=== PATIENT | female | born 1980 | race Caucasian/White ===

== ENCOUNTER → 2017-09-12 | Day surgery (SDC) | payer OTHER, SELFPAY ==
[2017-09-08 13:39] LABS: BASOPHILS # (AUTO) 0.1 (0.0-0.1); BASOPHILS % 0.6 % (0.0-1.0); EOSINOPHILS # (AUTO) 0.1 (0.0-0.4); EOSINOPHILS % 1.4 % (0.0-6.0); HEMATOCRIT 33.1 % (34.2-44.1); HEMOGLOBIN 10.3 g/dL (12.0-16.0); LYMPHOCYTES # (AUTO) 3.4 (1.0-3.2); LYMPHOCYTES % 39.7 % (18.0-39.1); MEAN CORPUSCULAR HEMOGLOBIN 23.4 pg (28-32); MEAN CORPUSCULAR HGB CONC 31.1 g/dL (31-35); MEAN CORPUSCULAR VOLUME 75.2 fL (81-99); MONOCYTES # (AUTO) 0.6 (0.2-0.8); MONOCYTES % 6.5 % (4.4-11.3); NEUTROPHILS # (AUTO) 4.4 (2.1-6.9); NEUTROPHILS % 51.7 % (38.7-80.0); PLATELET COUNT 568 x10e3/uL (140-360); RED CELL DISTRIBUTION WIDTH 15.5 % (11.7-14.4)
[2017-09-08 14:06] LABS: ALANINE AMINOTRANSFERASE 28 IU/L (0-55); ALBUMIN 3.8 g/dL (3.5-5.0); ALKALINE PHOSPHATASE 63 IU/L (40-150); ANION GAP 11.9 mmol/L (8-16); BLOOD UREA NITROGEN 10 mg/dL (7-26); BUN/CREATININE RATIO 13 (6-25); CALCIUM 9.2 mg/dL (8.4-10.2); CARBON DIOXIDE 23 mmol/L (22-29); CHLORIDE 108 mmol/L (98-107); CREATININE, SERUM 0.79 mg/dL (0.57-1.11); EST GLOMERULAR FILTRATION RATE > 60 ML/MIN (60-); GLUCOSE 101 mg/dL (74-118); POTASSIUM 3.9 mmol/L (3.5-5.1); SODIUM 139 mmol/L (136-145)
[~2017-09-12] MED LIST: BACITRACIN 50,000 UNIT VIAL ONE; CEFAZOLIN SOD 1 GM VIAL ONE; DESFLURANE 240 ML BTL INH ONE; DEXAMETHASONE SOD PHOS INJ 4 MG/ML VIAL ONE; ELIQUIS; FENTANYL CITRATE/PF 100MCG/2 ML INJ ONE; GLYCOPYRROLATE INJ 1MG/ 5 ML SYR ONE; LIDOCAINE HCL 2% LOCAL INJ 5 ML SDV VIAL INJ ONE; MIDAZOLAM HCL 2 MG/2 ML VIAL ONE; NEOSTIGMINE 5 MG/5ML SYR ONE; ONDANSETRON HCL INJ 2 MG/ML VIAL ONE; PROPOFOL IV EMULSION 10 MG/ML 20 ML VIAL ONE; ROCURONIUM BROMIDE 10 MG/ML 5ML VIAL ONE; SCOPOLAMINE 1.5 MG PATCH ONE; [UNRECOGNIZED DRUG - CODE] PO
--- OUTSIDE RECORDS SUMMARY | 2017-09-12 06:26 | XMS REPORT | Clinical Summary ---
Author Author [employer] Organization [employer] Address Unknown Phone Unavailable Care Team Providers Care Flow Floor Attendant Name Role Phone Natacha Gutierrez MD PCP Allergies Active Allergy Reactions Severity Noted Date Comments Cefuroxime Axetil GI Intolerance 07/01/2016 Erythromycin GI Intolerance 07/01/2016 Current Medications Prescription Sig. Disp. Refills Start End Date Status Date sertraline (ZOLOFT) 50 MG Take 50 mg by mouth Active tablet daily. ergocalciferol (VITAMIN TAKE 1 CAPSULE BY MOUTH 1 12 capsule 3 Active D2) 50,000 unit capsule TIME A WEEK 18 cetirizine (ZyrTEC) 10 MG Take 10 mg by mouth once 0 04/04/20 Discontin tablet daily. 16 17 ued CRANBERRY FRUIT EXTRACT 01/25/20 Discontin (CRANBERRY EXTRACT, BULK, 17 ued MISC) ergocalciferol (VITAMIN Take 1 capsule (50,000 4 capsule 11 07/13/19 07/28/19 Discontin D2) 50,000 unit capsule Units total) by mouth 17 18 ued once a week. cyanocobalamin 1,000 Inject 1 mL (1,000 mcg 10 mL 1 08/06/19 Discontin mcg/mL injection total) into the shoulder, 17 17 ued thigh, or buttocks once a week. X 1 month, then once monthly thereafter insulin Use weekly with b12 50 Syringe 1 08/06/19 01/25/20 Discontin syringe,safetyneedle 1 mL injections 17 17 ued 30 gauge x 5/16" syringe penicillin v potassium Take 1 tablet (500 mg 21 tablet 0 10/15/19 (VEETID) 500 MG tablet total) by mouth 3 (three) 17 17 times a day for 7 days. benzocaine (HURRICAINE) Apply 1 application to 1 each 0 10/15/19 20 % gel the mouth or throat 4 17 17 (four) times a day as needed for mucositis for up to 7 days. traMADol (ULTRAM) 50 mg Take 1 tablet (50 mg 24 tablet 0 11/28/19 tablet total) by mouth every 6 17 17 (six) hours as needed for moderate pain for up to 6 days. clindamycin (CLEOCIN HCL) Take 1 capsule (300 mg 30 capsule 0 12/08/19 300 MG capsule total) by mouth 3 (three) 17 17 times a day for 10 days. amoxicillin (AMOXIL) 400 Take 6.3 mL (500 mg 126 mL 0 01/29/2002/07 mg/5 mL suspension total) by mouth 2 (two) 17 17 times a day for 10 days. HYDROcodone-acetaminophen Take 15 mL by mouth every 01/29/20 02/08/20 (HYCET) 2.5-108.3 mg/5 mL 4 (four) hours as needed 17 17 solution for moderate pain for up to 10 days. Max Daily Amount: 90 mL nystatin (MYCOSTATIN) Apply topically 3 (three) 200 g 0 02/04/20 100,000 unit/gram powder times a day for 10 days. 17 17 Suspend in solution for 100,000 units/mL, 5 mL swish and swallow TID amoxicillin-pot Take 1 tablet by mouth 2 14 tablet 0 04/10/20 clavulanate (AUGMENTIN) (two) times a day for 7 17 17 875-125 mg per tablet days. cetirizine (ZyrTEC) 10 MG Take 1 tablet (10 mg 30 tablet 9 04/10/20 05/10/20 tablet total) by mouth daily for 17 17 30 days. fluconazole (DIFLUCAN) Take 1 tablet (150 mg 1 tablet 0 04/10/20 150 MG tablet total) by mouth once for 17 17 1 dose. ergocalciferol (VITAMIN TAKE 1 CAPSULE BY MOUTH 1 4 capsule 0 08/26/19 Discontin D2) 50,000 unit capsule TIME A WEEK 18 18 [facility] Hospital, Clinic, or Ordered Dose Route Frequency Start End Date Status Other Facility Date Administered Medication methylPREDNISolone 80 mg IM once 04/10/20 04/10/20 Ended acetate (DEPO-MEDROL) 17 17 injection 80 mgIndications: Acute recurrent maxillary sinusitis dexamethasone (DECADRON) 4 mg IM once 04/10/20 04/10/20 Ended injection 4 17 17 mgIndications: Acute recurrent maxillary sinusitis Active Problems Problem Noted Date Chronic tonsillitis 12/26/2016 Overview: Added automatically from request for surgery [id number] Iron deficiency anemia due to chronic blood loss 08/05/2016 Vitamin D deficiency 08/05/2016 Vitamin B12 deficiency 08/05/2016 Essential hypertension 08/05/2016 History of bariatric surgery 08/05/2016 Encounters Date Type Specialty Care Team Description 08/25/2017 Refill Internal Medicine Lyn Olsen MD 07/27/2017 Refill Internal Medicine Lyn Olsen MD 04/10/2017 Office Visit Internal Medicine Natacha Gutierrez MD Acute recurrent maxillary sinusitis (Primary Dx) 02/19/2017 Office Visit Otolaryngology Marjan Goldstein MD Chronic tonsillitis (Primary Dx) 02/03/2017 Office Visit Otolaryngology Marjan Goldstein MD Oral thrush (Primary Dx) 01/28/2017 [facility] General Surgery Marjan Goldstein MD Preoperative testing; Encounter Chronic tonsillitis 01/28/2017 Anesthesia General Surgery Michela Emery Event 01/28/2017 Procedure Pass General Surgery 01/28/2017 Surgery General Surgery Marjan Goldstein MD TONSILLECTOMY 01/24/2017 Pre-Admit Pre-Admission Testing Marjan Goldstein MD Preoperative testing Testing (Primary Dx) Appointment 12/26/2016 Office Visit Otolaryngology Marjan Goldstein MD Chronic tonsillitis (Primary Dx) 12/26/2016 Prep for Otolaryngology Marjan Goldstein MD Chronic tonsillitis Surgery (Primary Dx) 11/27/2016 Emergency Emergency Medicine All [facility] II, Dental caries (Primary AIRCRAFT STRUCTURE MECHANIC Dx); [facility] dental Scott, MD 10/14/2016 Emergency Emergency Medicine Ty Moore Toothache (Primary Dx) MD Jose after 09/11/2016 Family History Medical History Relation Name Comments Diabetes Father Heart disease Father Diabetes Mother Diabetes Sister Anxiety disorder Neg Hx Relation Name Status Comments Father Alive Mother Alive Sister Alive Social History Tobacco Use Types Packs/Day Years Used Date Never Smoker Smokeless Tobacco: Never Used Alcohol Use Drinks/Week oz/Week Comments Yes socially Sex Assigned at Date Recorded Not on file Last Filed Vital Signs Vital Sign Reading Time Taken Blood Pressure 137/92 04/10/2017 2:13 PM HAND WRAPPER OPERATOR Pulse 97 04/10/2017 2:13 PM HAND WRAPPER OPERATOR Temperature 37.6 C (99.6 F) 04/10/2017 2:13 PM HAND WRAPPER OPERATOR Respiratory Rate 16 01/28/2017 10:58 AM CDT Oxygen Saturation 99% 04/10/2017 2:13 PM HAND WRAPPER OPERATOR Inhaled Oxygen - - Concentration Weight 145 kg (320 lb) 04/10/2017 2:13 PM HAND WRAPPER OPERATOR Height 167.6 cm (5' 6") 04/10/2017 2:13 PM HAND WRAPPER OPERATOR Body Mass Index 51.65 04/10/2017 2:13 PM HAND WRAPPER OPERATOR Plan of Treatment Health Maintenance Due Date Last Done Comments PAP SMEAR 09/17/2003 INFLUENZA VACCINE 12/24/2017 Procedures Procedure Name Priority Date/Time Associated Diagnosis Comments TONSILLECTOMY 01/28/2017 Chronic tonsillitis 9:00 AM CDT NC AN ELECTIVE Routine 01/28/2017 ENDOTRACHEAL AIRWAY 8:37 AM CDT Procedure Note - Michela Emery - 01/28/2017 8:37 AM CDT Airway Date/Time: 01/28/2017 8:21 AM Performed by: SYLVIA OLIVEIRA Authorized by: SYLVIA OLIVEIRA Location: OR Urgency: Elective Anesthesio logist: SYLVIA OLIVEIRA Other Anesthesia Staff: MICHELA EMERY Performed by: other anesthesia staff Preoxygena markie with 100% O2: Yes C-spine Precaution s Maintained Throughout : Yes Mask Ventilatio n: Easy mask Final Airway Type: Endotrache al airway Final Endotrache al Airway: GONZALEZ tube Cuffed: Yes Technique Used: Direct laryngosco py Devices/Me thods Used in Placement: Intubatin g stylet Insertion Site: Oral Blade Type: Guzman Laryngosco pe Blade/Vide olaryngosc ope Blade Size: 2 Cuff at minimum occlusion pressure: Yes Measured from: Lips ETT to Lips (cm): 20 Placement Verified by: CO2 detection, direct visualizat ion and equal breath sounds Laryngosco pic view: Grade I - full view of glottis Rapid Sequence Induction (RSI): No Modified RSI: No Number of Attempts at Approach: 1 NERVE BLOCK Routine 10/14/2016 Results for this 1:16 PM CDT procedure are in the results section. after 09/11/2016 Results * Surgical pathology request (01/28/2017 8:37 AM) Component Value Ref Range Surgical pathology report See link below for PDF Lab Report Specimen Performing Laboratory [facility] DE[facility] [address] [place] [address] * hCG qualitative, urine screen (01/28/2017 7:21 AM) Only the most recent of 2 results within the time period is included. Component Value Ref Range hCG qualitative, urine Negative Negative Comment: The manufacturers stated sensitivity of HcG test for serum is >/=10 mIU/ml and urine is >/=20mIU/ml. Specimen Performing Laboratory Urine [facility] [address] [place] [address] * Partial thromboplastin time, activated (01/24/2017 3:31 PM) Component Value Ref Range PTT 33.5 23.0 - 36.0 sec Comment: PTT therapeutic range for unfractionated heparin is 61.0-112.0 seconds which corresponds to Anti-Xa 0.3-0.7 U/ml. Specimen Performing Laboratory Blood [facility] [address] [place] [address] * Prothrombin time with INR (01/24/2017 3:31 PM) Component Value Ref Range Prothrombin time 12.4 12.0 - 15.0 sec INR 0.9 Comment: The International Normalized Ratio (INR) is a therapeutic monitoring tool for patients who are stable on oral anticoagulant therapy. An INR of 2.0-3.0 is suggested for deep vein thrombosis/pulmonary embolism. Specimen Performing Laboratory Blood [address] [place] [address] * CBC hemogram (01/24/2017 3:31 PM) Component Value Ref Range WBC 10.26 4.50 - 11.00 k/uL RBC 4.40 4.20 - 5.50 m/uL HGB 10.8 (L) 12.0 - 16.0 g/dL HCT 34.3 (L) 37.0 - 47.0 % MCV 78.0 (L) 82.0 - 100.0 fL MCH 24.5 (L) 27.0 - 34.0 pg MCHC 31.5 31.0 - 37.0 g/dL RDW - SD 40.9 37.0 - 55.0 fL MPV 10.3 8.8 - 13.2 fL Platelet count 528 (H) 150 - 400 k/uL Nucleated RBC 0.00 /100 WBC Specimen Performing Laboratory Blood [facility] DEPARTMENT OF PATHOLOGY AND GENOMIC MEDICINE [address] [place] [address] * NERVE BLOCK (10/14/2016 1:16 PM) Shelley Swenson MD 10/14/20161:16 PM Nerve Block Performed by: TY SWENSON Authorized by: TY SWENSON Consent: Consent obtained:Verbal Consent given by:Patient Risks discussed:Allergic reaction, infection, intravenous injection, bleeding, nerve damage, pain, swelling and unsuccessful block Alternatives discussed:No treatment and referral Indications: Indications:Pain relief Location: Nerve block body site: dental block RLjaw. Laterality:Right Pre-procedure details: Preparation: Patient was prepped and draped in usual sterile fashion Skin anesthesia (see MAR for exact dosages): Skin anesthesia method:Local infiltration Local anesthetic:Bupivacaine 0.25% w/o epi and lidocaine 2% w/o epi Procedure details (see MAR for exact dosages): Block needle gauge:27 G Steroid injected:None Additive injected:None Injection procedure:Anatomic landmarks identified, negative aspiration for blood, incremental injection, introduced needle and anatomic landmarks palpated Post-procedure details: Dressing:None Outcome:Anesthesia achieved Patient tolerance of procedure:Tolerated well, no immediate complications Comments: Applied 0.6 mL of a 50/50 mixture of bupivacaine and lidocaine with immediate improvement of her symptoms after 09/11/2016 Insurance Payer Benefit Subscriber ID Type Phone Address Plan / Group xxxxxxxxx [facility]
[2017-09-12 07:11] LABS: BASOPHILS % 0.5 % (0.0-1.0); EOSINOPHILS # (AUTO) 0.2 (0.0-0.4); EOSINOPHILS % 1.9 % (0.0-6.0); HEMATOCRIT 33.2 % (34.2-44.1); HEMOGLOBIN 10.4 g/dL (12.0-16.0); LYMPHOCYTES # (AUTO) 3.1 (1.0-3.2); LYMPHOCYTES % 36.6 % (18.0-39.1); MEAN CORPUSCULAR HEMOGLOBIN 23.5 pg (28-32); MEAN CORPUSCULAR HGB CONC 31.3 g/dL (31-35); MEAN CORPUSCULAR VOLUME 75.1 fL (81-99); MONOCYTES # (AUTO) 0.6 (0.2-0.8); MONOCYTES % 6.8 % (4.4-11.3); NEUTROPHILS # (AUTO) 4.5 (2.1-6.9); PLATELET COUNT 584 x10e3/uL (140-360); RED BLOOD COUNT 4.42 x10e6/uL (3.6-5.1); RED CELL DISTRIBUTION WIDTH 15.8 % (11.7-14.4)
--- NOTE | 2017-10-15 19:23 | Operative Report ---
DATE OF PROCEDURE: September 12, 2017 PREOPERATIVE DIAGNOSIS: Bilateral breast hypomastia and ptosis. POSTOPERATIVE DIAGNOSIS: Bilateral breast hypomastia and ptosis. PROCEDURE PERFORMED: Bilateral breast augmentation mastopexy, submuscular, with silicone gel breast implants, Bandon, smooth, round, high profile, 650 mL on the left and 700 mL on the right, serial number on the left [id number], and serial number on the right [id number]. ANESTHESIA: GETA INDICATIONS FOR SURGERY: This is a 36-year-old female who complains of bilateral breast hypomastia and ptosis and desires bilateral breast augmentation mastopexy, submuscular, with silicone gel breast implants. The patient has selected Bandon smooth, round, high profile, 650 mL implant for the left side and 700 mL silicone implant for the right side. The risks, alternatives and possible complications of the above procedure were explained to the patient. These include but are not limited to bleeding infection, scarring, bruising, swelling, capsular contracture, exposure or failure of silicone gel implant, breast asymmetry, loss of nipple sensation, nipple or skin flap necrosis, wound dehiscence, recurrence of ptosis, inability to breast-feed, unsatisfactory aesthetic result, and possible need for further surgery. The patient had an opportunity to ask questions and have her questions answered and agreed to proceed with the proposed procedure. PROCEDURE IN DETAIL: The patient was marked in the preoperative holding area. She was then taken to the operating room and placed supine on the operating table. After adequate general anesthesia, the patient's bilateral breasts were prepped and draped in the usual surgical fashion. The preoperative markings were rechecked for symmetry. The nipple-areolar complex was marked with a cookie-cutter at 42 mm diameter. A vertical incision was made below the nipple-areolar complex with a #15 blade. Tissue was dissected down to the chest wall with the help of the Bovie. The pectoralis major muscle was identified, and a subpectoral pocket was developed with the help of the Larisa Ortiz and Dewayne retractor as well as headlight. The pocket was irrigated with normal saline with antibiotic solution and checked for hemostasis. A similar pocket was developed on the opposite breast. The 2 pockets were checked for symmetry. They appeared to be symmetric. The silicone gel implants were then placed in each pocket. Smooth, round, high profile, 650 mL on the left side and 700 mL on the right side. The patient was then placed in the sitting position, and the 2 breasts were checked for symmetry. They appeared to be symmetric. The breast pocket was then closed with interrupted 3-0 Vicryl sutures. The excess skin was then stapled. The patient was placed again in the sitting position, and the 2 breasts were checked for symmetry. They appeared to be symmetric. The excess skin was marked for resection. The fay were removed. The excess skin was de-epithelialized with the help of the Bovie as well as a #15 blade. The nipple-areolar complex was then sutured in its new superior location with interrupted 4-0 Vicryl sutures. The medial and lateral skin flaps were advanced to each other and sutured to each other with interrupted 3-0 Vicryl sutures. A running subcuticular 4-0 PDS suture was placed along the vertical limb and around the nipple-areolar complex. Similar procedure was performed on the opposite breast. At the end of the case, both breasts appeared to be symmetric. Both nipples and all skin flaps appeared viable. Steri-Strips were placed around each nipple-areolar complex. The incisions were covered with Xeroform and ABD pads, and a surgical bra was placed on the patient. She tolerated the procedure well. There were no immediate complications. The needle and instrument count was correct at the end of the case. She was transferred extubated to the recovery room. Job#: [id number] [facility]
== END | disposition home or self-care (01) ==
LOC: OR 06:24
PROVIDERS: ATTEND Plastic Surgery
DX: N64.82 Hypoplasia of breast (principal); N64.81 Ptosis of breast; E66.01 Morbid (severe) obesity due to excess calories; K21.9 Gastro-esophageal reflux disease without esophagitis; N39.0 Urinary tract infection, site not specified; Z88.1 Allergy status to other antibiotic agents; Z01.812 Encounter for preprocedural laboratory examination; Z79.02 Long term (current) use of antithrombotics/antiplatelets
CPT/HCPCS: 19316; 19340; 36415 ×2; 80053; 81025; 85025 ×2; J0690; J1100; J2001; J2250; J2405

== ENCOUNTER → 2018-03-02 | Day surgery (SDC) | payer OTHER ==
[2018-02-25 14:58] LABS: BASOPHILS % 0.4 % (0.0-1.0); EOSINOPHILS # (AUTO) 0.2 (0.0-0.4); EOSINOPHILS % 1.7 % (0.0-6.0); HEMATOCRIT 32.4 % (34.2-44.1); HEMOGLOBIN 9.8 g/dL (12.0-16.0); LYMPHOCYTES # (AUTO) 3.6 (1.0-3.2); LYMPHOCYTES % 37.3 % (18.0-39.1); MEAN CORPUSCULAR HEMOGLOBIN 22.4 pg (28-32); MEAN CORPUSCULAR HGB CONC 30.2 g/dL (31-35); MONOCYTES # (AUTO) 0.7 (0.2-0.8); MONOCYTES % 6.9 % (4.4-11.3); NEUTROPHILS # (AUTO) 5.2 (2.1-6.9); NEUTROPHILS % 53.5 % (38.7-80.0); PLATELET COUNT 593 x10e3/uL (140-360); RED BLOOD COUNT 4.38 x10e6/uL (3.6-5.1); RED CELL DISTRIBUTION WIDTH 16.1 % (11.7-14.4)
[~2018-03-02] MED LIST changes: -BACITRACIN 50,000 UNIT VIAL ONE; +BUPIVACAINE 0.25%/EPI 30ML SDV INJ ONE; -CEFAZOLIN SOD 1 GM VIAL ONE; -DESFLURANE 240 ML BTL INH ONE; +DUPIXENT INJ; +IBUPROFEN400 MG PO; -SCOPOLAMINE 1.5 MG PATCH ONE; +SEVOFLURANE INHAL SOLN 250 ML PEN BTL ONE
[2018-03-02 15:20] VITALS: BP 134/74
--- NOTE | 2018-03-03 14:51 | Operative Report ---
DATE OF PROCEDURE: March 02, 2018 BRUSH CLEARER SURVEYING: None. PREOPERATIVE DIAGNOSES 1. Abnormal uterine bleeding. 2. Endometrial polyp. 3. Desire for sterilization. POSTOPERATIVE DIAGNOSES 1. Abnormal uterine bleeding. 2. Endometrial polyp. 3. Desire for sterilization. OPERATIONS PERFORMED 1. Dilatation and curettage. 2. Hysteroscopic polypectomy. 3. Laparoscopic bilateral tubal ligation. ANESTHESIA: General. ESTIMATED BLOOD LOSS: Minimal. COMPLICATIONS: None. FINDINGS: Hysteroscopic findings revealed a small endometrial polyp, otherwise normal intrauterine cavity. Laparoscopic findings showed adhesions between the anterior abdominal wall and the uterus, otherwise normal pelvic anatomy. SPECIMENS: Included endometrial curettings with polyp. INDICATIONS: The patient is a 37-year-old female who desired sterilization but was unable to receive a hysteroscopic tubal occlusion in the office secondary to an obstructing endometrial polyp. She also complained of heavy menstrual periods. PROCEDURE NOTE: The patient was taken to the operating room where general anesthesia was obtained. The patient was prepped and draped in the typical sterile fashion in the dorsal lithotomy position in [facility] express, and a time out was done. The patient's bladder was drained with a straight catheter prior to the procedure. A weighted speculum was placed in the vagina, and the anterior lip of the cervix was grasped with a single-toothed tenaculum. The cervix was then sequentially dilated with the Hegar dilators in order to allow advancement of the TRUCLEAR hysteroscope to the uterine fundus. The uterine cavity was then explored, with the above findings. The TRUCLEAR device was used to morcellate and remove the polyp under direct visualization. A sharp curettage was then performed, and all curettings were sent for pathology. Survey of the uterine cavity then revealed a normal-appearing and intact cavity. A uterine manipulator was then placed within the uterine cavity in order to provide a means for manipulation. Attention was then turned to the abdomen where 0.25% Marcaine was injected just below the umbilicus, and an 11-blade scalpel was used to make a vertical infraumbilical incision. A 5-mm trocar was placed intra-abdominally under direct visualization with the laparoscope. Pneumoperitoneum was achieved, and the patient was placed in the Trendelenburg position. A second port site was then made approximately 2 cm above the pubis in the midline where 0.25% Marcaine was injected and a scalpel used to make a small horizontal incision. An 8-mm trocar was placed under direct visualization at this site. The midampullary portion of the right fallopian tube was grasped with the Filshie clip applicator and the clip placed. The same procedure was then performed on the patient's left fallopian tube. The pneumoperitoneum, laparoscopic instruments and trocar sleeves were all then removed from the patient. Both trocar incisions were closed using 4-0 Monocryl in a subcuticular fashion and covered with Dermabond. All instruments were then removed from the patient's vagina. Hemostasis of the tenaculum site on the cervix was assured. All counts were found to be correct. The patient was extubated and authorized to be taken to the recovery room in stable condition, having tolerated the procedure well. Job#: [id number] EV
--- OUTSIDE RECORDS SUMMARY | 2018-03-10 11:53 | XMS REPORT | Clinical Summary ---
Author Author [employer] Organization [employer] Address Unknown Phone Unavailable Care Team Providers Care Bandoleer Packer Name Role Phone Natacha Gutierrez MD PCP Allergies Active Allergy Reactions Severity Noted Date Comments Cefuroxime Axetil GI Intolerance 07/01/2016 Erythromycin GI Intolerance 07/01/2016 Current Medications Prescription Sig. Disp. Refills Start End Date Status Date sertraline (ZOLOFT) 50 MG Take 50 mg by mouth Active tablet daily. ergocalciferol (VITAMIN TAKE 1 CAPSULE BY MOUTH 1 12 capsule 3 08/27/19 Active D2) 50,000 unit capsule TIME A WEEK 18 cetirizine (ZyrTEC) 10 MG Take 10 mg by mouth once 0 04/04/20 04/10/20 Discontin tablet daily. 16 17 ued nitrofurantoin, Take 1 tablet by mouth 30 capsule 5 07/01/19 02/02/20 Discontin macrocrystal-monohydrate, after intercourse 17 18 ued (MACROBID) 100 MG capsule ergocalciferol (VITAMIN Take 1 capsule (50,000 4 capsule 11 07/13/19 07/28/19 Discontin D2) 50,000 unit capsule Units total) by mouth 17 18 ued once a week. amoxicillin-pot Take 1 tablet by mouth 2 14 tablet 0 04/10/20 04/17/20 clavulanate (AUGMENTIN) (two) times a day for 7 17 17 875-125 mg per tablet days. cetirizine (ZyrTEC) 10 MG Take 1 tablet (10 mg 30 tablet 9 04/10/20 05/10/20 tablet total) by mouth daily for 17 17 30 days. fluconazole (DIFLUCAN) Take 1 tablet (150 mg 1 tablet 0 04/10/20 04/10/20 150 MG tablet total) by mouth once for 17 17 1 dose. ergocalciferol (VITAMIN TAKE 1 CAPSULE BY MOUTH 1 4 capsule 0 07/28/19 08/26/19 Discontin D2) 50,000 unit capsule TIME A WEEK 18 18 ued nitrofurantoin, TAKE ONE CAPSULE BY MOUTH 30 capsule 0 02/03/20 03/04/20 macrocrystal-monohydrate, AFTER INTERCOURSE 18 18 (MACROBID) 100 MG capsule Hospital, Clinic, or Ordered Dose Route Frequency [...] Overview: Added automatically from request for surgery [id number] Iron deficiency anemia due to chronic blood loss 08/05/2016 Vitamin D deficiency 08/05/2016 Vitamin B12 deficiency 08/05/2016 Essential hypertension 08/05/2016 History of bariatric surgery 08/05/2016 Encounters Date Type Specialty Care Team Description 02/11/2018 [facility] Radiology sarah Bonny Steeleova, Fall in home, initial Encounter MD encounter; Injury of breast, right, initial encounter 02/01/2018 Refill Urology Cecilia Beverly MD 01/29/2018 [facility] Bonny smith, Fall in home, initial Orders MD encounter (Primary Dx); Injury of breast, right, initial encounter 08/25/2017 Refill Internal Medicine Lyn Olsen MD 07/27/2017 Refill Internal Medicine Lyn Olsen MD 04/10/2017 Office Visit Internal Medicine Natacha Gutierrez MD Acute recurrent maxillary sinusitis (Primary Dx) after 03/01/2017 Family History Medical History Relation Name Comments [...] Taken Blood Pressure 137/92 04/10/2017 2:13 PM HARD TILE SETTER Pulse 97 04/10/2017 2:13 PM HARD TILE SETTER Temperature 37.6 C (99.6 F) 04/10/2017 2:13 PM HARD TILE SETTER Respiratory Rate - - Oxygen Saturation 99% 04/10/2017 2:13 PM HARD TILE SETTER Inhaled Oxygen - - Concentration Weight 145 kg (320 lb) 04/10/2017 2:13 PM HARD TILE SETTER Height 167.6 cm (5' 6") 04/10/2017 2:13 PM HARD TILE SETTER Body Mass Index 51.65 04/10/2017 2:13 PM HARD TILE SETTER Plan of Treatment Date Type Specialty Care Team Description 03/24/2018 Office Visit Urology Rupinder Aldridge MD [address] [facility] [address] [place] [address] Health Maintenance Due Date Last Done Comments CERVICAL CANCER SCREENING 09/17/2003 INFLUENZA VACCINE 12/24/2017 Procedures Procedure Name Priority Date/Time Associated Diagnosis Comments US BREAST COMPLETE RIGHT Routine 02/11/2018 Fall in home, initial Results for this 10:51 AM CDT encounter procedure are in the Injury of breast, right, results section. initial encounter after 03/01/2017 Results * US Breast Complete Right (02/11/2018 10:51 AM) Narrative Performed At PROCEDURE:US BREAST COMPLETE RIGHT [facility] CLINICAL HISTORY:37-year-old female status post fall. Examination is performed to evaluate for right implant rupture. COMPARISON:None available. BREAST ULTRASOUND FINDINGS: Complete right breast sonogram, to include scanning of all 4 quadrants, the retroareolar/subareolar region, and axilla was performed by the technologist with close supervision by the radiologist. Sonographic evaluation of the right breast demonstrates normal glandular tissue within all 4 quadrants and retroareolar position. There is no sonographic evidence for right implant rupture. Imaged contents within the right axilla are within normal limits. IMPRESSION: BI-RADS Category 0-Incomplete:Need Additional Imaging Evaluation. 1.No sonographic evidence for malignancy or right implant rupture. 2.A bilateral mammogram is recommended to ensure absence of malignancy. 3.If clinically necessary, a breast MRI could be performed to better evaluate for right implant rupture. RECOMMENDATION: 1.Consider breast MRI to further evaluate for right implant rupture. 2.A bilateral mammogram is recommended to exclude breast malignancy. The results of this exam have been sent to the patient. This facility is accredited by [employer] for Mammography. A negative x-ray report should not delay biopsy if a dominant or clinically suspicious mass is present. Not all cancers are identified by x-ray. [id number] Performing Organization Address City/State/Zipcode Phone Number [facility] [address] [place] [address] after 03/01/2017 Insurance Payer Benefit Subscriber ID Type Phone Address Plan / Group xxxxxxxxx [facility] xxxxxxxxx [facility]
== END | disposition home or self-care (01) ==
LOC: OR 10:33
PROVIDERS: ATTEND Obstetrics & Gynecology Obstetrics
DX: N84.0 Polyp of corpus uteri (principal); Z30.2 Encounter for sterilization; F90.9 Attention-deficit hyperactivity disorder, unspecified type; N20.0 Calculus of kidney; F41.9 Anxiety disorder, unspecified; K21.9 Gastro-esophageal reflux disease without esophagitis; E66.01 Morbid (severe) obesity due to excess calories; Z88.1 Allergy status to other antibiotic agents; Z88.8 Allergy status to other drugs, medicaments and biological substances; Z01.812 Encounter for preprocedural laboratory examination
CPT/HCPCS: 36415; 58558; 58671; 84702; 85025; 88305; J1100; J2001; J2250; J2405; J3490